=== PATIENT | female | born 1980 | race Two or more races ===

== ENCOUNTER 2018-06-03 13:24 | Inpatient (IN) | payer MEDICAID ==
[~2018-06-03] VITALS: Ht 165.1 cm; Wt 131.5 kg
[2018-06-03] MEDS ORDERED: IPRATROPIUM BROMIDE (0.02%) 0.5MG/2.5ML NEB HHN STA (13:48)
[2018-06-03] MEDS ORDERED: METHYLPREDNISOLONE SOD SUCC 125 MG/2 ML VIAL IV STA (13:48)
[2018-06-03] MEDS ORDERED: ALBUTEROL (0.083%) 2.5MG/3ML NEB HHN STA ×2 (13:48→15:44)
[2018-06-03 14:31] LABS: BASOPHILS % 0.5 % (0.0-2.0); EOSINOPHILS % 0.2 % (0.0-5.0); HEMATOCRIT. 33.3 % (36.0-48.0); HEMOGLOBIN. 10.3 g/dL (12.0-16.0); LYMPHOCYTES % 13.8 % (20.0-50.0); MEAN CORPUSCULAR HEMOGLOBIN 26.1 pg (28.0-32.0); MEAN CORPUSCULAR VOLUME 84.5 fL (81.0-99.0); MEAN PLATELET VOLUME 10.7 fl (7.4-10.4); MONOCYTES % 10.7 % (2.0-8.0); NEUTROPHILS % 74.8 % (40.0-76.0); PLATELET 165 x1000/uL (130-400); RED BLOOD CELL COUNT 3.94 mill/uL (4.2-5.4); RED CELL DISTRIBUTION WIDTH 19.8 % (11.6-14.6)
[2018-06-03 14:36] LABS: CHLORIDE 116 mEq/L (98-107)
[2018-06-03 14:42] LABS: ETHANOL BLOOD < 10 mg/dL
[2018-06-03 16:46] LABS: BG BASE EXCESS -4.3 mmol/L (-2.0-2.0); BG BILEVEL POS AIRWAY PRESSURE ST=14/6; BG CARBOXYHEMOGLOBIN 0.5 % (0.5-1.5); BG DEOXYHEMOGLOBIN 0.7 % (0.0-5.0); BG FRACTION INSPIRED OXYGEN 50; BG HCO3 ACT 21.4 mmol/L (22.0-26.0); BG METHEMOGLOBIN 0.3 % (0.0-1.5); BG OXYGEN SATURATION 99.3 % (92.0-98.5); BG OXYHEMOGLOBIN 98.5 % (94.0-97.0); BG PCO2 41.9 mmHg (35.0-45.0); BG PH 7.326 (7.350-7.450); BG PO2 196.8 mmHg (75.0-100.0); BG PRESSURE SUPPORT 8; BG SAMPLE SITE RIGHT RADIAL; BG TOTAL HEMOGLOBIN 10.8 g/dL (12.0-18.0); BG VENT MODE MASK - BIPAP; BG VENT RATE 14 set
[2018-06-03 17:05] LABS: HCG SCREEN NEGATIVE
[2018-06-03] MEDS ORDERED: FUROSEMIDE 40MG/4ML VIAL IVP ONE (17:15)
[2018-06-03 20:30] VITALS: BP 104/58
[2018-06-03 20:31] VITALS: BP 104/58
[2018-06-03] MEDS ORDERED: IPRATROPIUM/ALBUTEROL 0.5-3(2.5)MG/3ML NEB HHN PRN (21:00)
[2018-06-03] MEDS: METHYLPREDNISOLONE SOD SUCC 40 MG/ML VIAL IV SCH (22:16)
[2018-06-03 22:22] VITALS: BP 108/73
[2018-06-03] MEDS ORDERED: CHOL20004 PO (22:25)
[2018-06-03] MEDS ORDERED: DIVA500T3 PO (22:29)
[2018-06-03] MEDS ORDERED: TEMAZEPAM 15MG CAPSULE PO PRN (22:30)
[2018-06-03] MEDS ORDERED: LORA10TA7 PO (22:30)
[2018-06-03] MEDS ORDERED: LITHTAB PO ×2 (22:34)
[2018-06-03] MEDS ORDERED: TOP100 PO (22:35)
[2018-06-03] MEDS ORDERED: BENZ1TAB7 PO (22:51)
[2018-06-03] MEDS ORDERED: OLAN20TA16 PO (22:52)
[2018-06-03] MEDS ORDERED: LORA2TAB2 PO (22:54)
[2018-06-03] MEDS ORDERED: LORA1TAB PO (22:54)
[2018-06-03] MEDS ORDERED: FLUO-124 PO (22:55)
[2018-06-03] MEDS ORDERED: OMEP40CA34 PO (22:56)
[2018-06-03] MEDS ORDERED: DOCU250C69 PO (22:57)
[2018-06-03] MEDS ORDERED: FLUT16SP15 BOTHNSTRLS (22:59)
[2018-06-03] MEDS ORDERED: POLY119P8 PO (23:01)
[2018-06-03] MEDS ORDERED: TEMA15CA5 PO (23:03)
[2018-06-03] MEDS ORDERED: ALBU18HF2 IH (23:05)
[2018-06-03] MEDS: LEVOFLOXACIN 500MG PREMIX 100 ML IV SCH (23:39)
[2018-06-04] VITALS (14 sets, daily range): BP systolic 91–152; BP diastolic 32–76
[2018-06-04] MEDS: IPRATROPIUM/ALBUTEROL 0.5-3(2.5)MG/3ML NEB HHN SCH ×6 (00:25→21:09)
[2018-06-04] MEDS ORDERED: DEXT 5%/0.45% NACL KCL 20MEQ/L 1,000 ML IV SCH (03:00)
[2018-06-04] MEDS: METHYLPREDNISOLONE SOD SUCC 40 MG/ML VIAL IV SCH ×4 (03:15→22:27)
[2018-06-04 03:27] LABS: CLARITY URINE CLOUDY (CLEAR); COLOR URINE YELLOW (YELLOW); KETONES URINE TRACE (NEGATIVE); LEUKOCYTE ESTERASE URINE 3+ (NEGATIVE); NITRITE URINE NEGATIVE (NEGATIVE); OCCULT BLOOD URINE TRACE (NEGATIVE); PH URINE 7.5 (4.5-8.0); PROTEIN URINE NEGATIVE (NEGATIVE); SPECIFIC GRAVITY URINE 1.011 (1.005-1.030); UROBILINOGEN URINE 0.2 E.U./dL (0.2-1.0)
[2018-06-04 03:36] LABS: *AMPHETAMINES SCREEN URINE NEGATIVE (NEGATIVE); *BARBITURATES SCREEN URINE NEGATIVE (NEGATIVE)
[2018-06-04 03:37] LABS: *BENZODIAZEPINES SCREEN URINE NEGATIVE (NEGATIVE); *COCAINE SCREEN URINE NEGATIVE (NEGATIVE); METHADONE URINE SCREEN NEGATIVE (NEGATIVE); OPIATES URINE SCREEN NEGATIVE (NEGATIVE); PHENCYCLIDINE URINE SCREEN NEGATIVE (NEGATIVE)
[2018-06-04 03:41] LABS: CANNABINOID URINE SCREEN NEGATIVE (NEGATIVE)
[2018-06-04] MEDS ORDERED: OMEPRAZOLE 20MG CAPSULE EXTENDED RELEASE PO SCH (06:50)
[2018-06-04] MEDS: ENOXAPARIN 30MG/0.3ML SYR SUBCUT SCH ×2 (08:34→22:30)
[2018-06-04] MEDS ORDERED: LITHIUM CARBONATE 300 MG PO SCH ×2 (09:00→21:00)
[2018-06-04] MEDS: DOCUSATE SODIUM 250MG CAPSULE PO SCH (09:00)
[2018-06-04] MEDS ORDERED: MEDICATION NOT ON FORMULARY EA (Omeprazole 40 MG) PO SCH (09:00)
[2018-06-04] MEDS ORDERED: MEDICATION NOT ON FORMULARY EA (Olanzapine 20 MG) PO SCH (09:00)
[2018-06-04] MEDS ORDERED: FLUOXETINE HCL 20 MG PO SCH (09:00)
[2018-06-04] MEDS ORDERED: BENZTROPINE MESYLATE 2 MG PO SCH (09:00)
[2018-06-04] MEDS ORDERED: MEDICATION NOT ON FORMULARY EA (Docusate Sodium 250 MG) PO SCH (09:00)
[2018-06-04] MEDS: TOPIRAMATE 100MG TABLET PO SCH ×2 (10:58→17:45)
[2018-06-04] MEDS: BENZTROPINE MESYLATE 2MG TABLET PO SCH ×2 (10:58→17:45)
[2018-06-04] MEDS: OLANZAPINE 10MG TABLET PO SCH ×2 (10:58→17:45)
[2018-06-04] MEDS: FLUOXETINE HCL 20MG CAPSULE PO SCH (10:58)
[2018-06-04] MEDS: LORATADINE 10MG TABLET PO SCH (10:59)
[2018-06-04] MEDS: LITHIUM CARBONATE 150 MG CAPSULE PO SCH ×2 (10:59→22:29)
[2018-06-04] MEDS: FLUTICASONE PROPIONATE 50MCG/SPRAY BOTTLE BOTHNSTRLS SCH (11:00)
[2018-06-04] MEDS ORDERED: FUROSEMIDE 40MG/4ML VIAL IVP NR (11:00)
[2018-06-04] MEDS ORDERED: POTASSIUM CHLORIDE 20MEQ TABLET SR PO NR (12:37)
[2018-06-04] MEDS: NYSTATIN POWDER 15GM TOP SCH ×2 (13:50→17:46)
[2018-06-04] MEDS: NEOMY SULF/BACITRAC ZN/POLY OINT 28GM TOP SCH ×2 (13:50→22:29)
[2018-06-04] MEDS: MONTELUKAST SODIUM 10MG TABLET PO SCH (17:45)
[2018-06-04] MEDS ORDERED: MEDICATION NOT ON FORMULARY EA (Divalproex Sodium (Depakote) 500 MG) PO SCH (21:00)
[2018-06-04] MEDS: FAMOTIDINE 20MG/2ML VIAL IV SCH (22:25)
[2018-06-04] MEDS: DIVALPROEX SODIUM 250MG DR TABLET PO SCH (22:28)
[2018-06-04] MEDS: GUAIFENESIN 600MG ER TABLET PO SCH (22:28)
[2018-06-04] MEDS: LEVOFLOXACIN 500MG PREMIX 100 ML IV SCH (22:54)
[2018-06-05] VITALS (12 sets, daily range): BP systolic 103–158; BP diastolic 52–102
[2018-06-05] MEDS: IPRATROPIUM/ALBUTEROL 0.5-3(2.5)MG/3ML NEB HHN SCH ×6 (01:16→20:58)
[2018-06-05] MEDS: METHYLPREDNISOLONE SOD SUCC 40 MG/ML VIAL IV SCH ×4 (03:39→21:46)
[2018-06-05] MEDS: LITHIUM CARBONATE 150 MG CAPSULE PO SCH ×2 (08:11→21:47)
[2018-06-05] MEDS: GUAIFENESIN 600MG ER TABLET PO SCH ×2 (08:13→21:46)
[2018-06-05] MEDS: BENZTROPINE MESYLATE 2MG TABLET PO SCH ×2 (08:14→17:40)
[2018-06-05] MEDS: TOPIRAMATE 100MG TABLET PO SCH ×2 (08:16→17:40)
[2018-06-05] MEDS: DOCUSATE SODIUM 250MG CAPSULE PO SCH (08:18)
[2018-06-05] MEDS: FLUOXETINE HCL 20MG CAPSULE PO SCH (08:19)
[2018-06-05] MEDS: OLANZAPINE 10MG TABLET PO SCH ×2 (08:26→17:39)
[2018-06-05 08:28] LABS: BASOPHILS % 0.3 % (0.0-2.0); HEMATOCRIT. 31.9 % (36.0-48.0); HEMOGLOBIN. 9.8 g/dL (12.0-16.0); LYMPHOCYTES % 18.2 % (20.0-50.0); MEAN CORPUSCULAR VOLUME 84.8 fL (81.0-99.0); MEAN PLATELET VOLUME 10.9 fl (7.4-10.4); MONOCYTES % 7.5 % (2.0-8.0); PLATELET 140 x1000/uL (130-400); RED BLOOD CELL COUNT 3.76 mill/uL (4.2-5.4); RED CELL DISTRIBUTION WIDTH 20.9 % (11.6-14.6)
[2018-06-05] MEDS: ENOXAPARIN 30MG/0.3ML SYR SUBCUT SCH (08:32)
[2018-06-05] MEDS: NEOMY SULF/BACITRAC ZN/POLY OINT 28GM TOP SCH ×2 (08:32→22:33)
[2018-06-05] MEDS: NYSTATIN POWDER 15GM TOP SCH ×3 (08:33→17:00)
[2018-06-05] MEDS: FLUTICASONE PROPIONATE 50MCG/SPRAY BOTTLE BOTHNSTRLS SCH (08:45)
[2018-06-05] MEDS ORDERED: LORATADINE 10MG TABLET PO SCH (09:00)
[2018-06-05 09:32] LABS: CHLORIDE 114 mEq/L (98-107)
[2018-06-05] MEDS: FAMOTIDINE 20MG/2ML VIAL IV SCH ×2 (09:34→21:46)
[2018-06-05] MEDS: LORATADINE 10MG TABLET PO SCH (09:35)
[2018-06-05] MEDS ORDERED: ONDANSETRON HCL 4MG/2ML INJ IV PRN (13:30)
[2018-06-05] MEDS: LORAZEPAM 0.5MG TABLET PO PRN (14:03)
[2018-06-05] MEDS: ACETAMINOPHEN 325MG TABLET PO PRN (17:38)
[2018-06-05] MEDS: MONTELUKAST SODIUM 10MG TABLET PO SCH (17:40)
[2018-06-05] MEDS: DIVALPROEX SODIUM 250MG DR TABLET PO SCH (21:46)
[2018-06-05] MEDS: AMLODIPINE 5MG TABLET PO SCH (21:47)
[2018-06-05] MEDS: ENOXAPARIN 40MG/0.4ML SYR SUBCUT SCH (21:48)
[2018-06-05] MEDS: LEVOFLOXACIN 500MG PREMIX 100 ML IV SCH (21:49)
[2018-06-05] MEDS: GUAIFENESIN-DM 200MG-20MG/10ML UDC PO PRN (22:52)
[2018-06-06] VITALS (8 sets, daily range): BP systolic 94–155; BP diastolic 54–100
[2018-06-06] MEDS: IPRATROPIUM/ALBUTEROL 0.5-3(2.5)MG/3ML NEB HHN SCH ×6 (00:10→20:27)
[2018-06-06] MEDS: METHYLPREDNISOLONE SOD SUCC 40 MG/ML VIAL IV SCH ×4 (03:00→20:29)
[2018-06-06] MEDS: GUAIFENESIN-DM 200MG-20MG/10ML UDC PO PRN (05:10)
[2018-06-06 06:07] LABS: CHLORIDE 112 mEq/L (98-107)
[2018-06-06 06:26] LABS: HEMOGLOBIN. 9.6 g/dL (12.0-16.0); MEAN CORPUSCULAR HEMOGLOBIN 25.9 pg (28.0-32.0); MEAN CORPUSCULAR VOLUME 83.9 fL (81.0-99.0); MEAN PLATELET VOLUME 10.6 fl (7.4-10.4); PLATELET 147 x1000/uL (130-400); RED BLOOD CELL COUNT 3.69 mill/uL (4.2-5.4); RED CELL DISTRIBUTION WIDTH 20.3 % (11.6-14.6)
[2018-06-06] MEDS: NYSTATIN POWDER 15GM TOP SCH ×3 (08:19→17:56)
[2018-06-06] MEDS: GUAIFENESIN 600MG ER TABLET PO SCH ×2 (08:20→20:30)
[2018-06-06] MEDS: FLUTICASONE PROPIONATE 50MCG/SPRAY BOTTLE BOTHNSTRLS SCH (08:20)
[2018-06-06] MEDS: OLANZAPINE 10MG TABLET PO SCH ×2 (08:20→17:56)
[2018-06-06] MEDS: LORATADINE 10MG TABLET PO SCH (08:20)
[2018-06-06] MEDS: NEOMY SULF/BACITRAC ZN/POLY OINT 28GM TOP SCH ×2 (08:20→20:47)
[2018-06-06] MEDS: DOCUSATE SODIUM 250MG CAPSULE PO SCH (08:20)
[2018-06-06] MEDS: FAMOTIDINE 20MG/2ML VIAL IV SCH ×2 (08:20→20:29)
[2018-06-06] MEDS: FLUOXETINE HCL 20MG CAPSULE PO SCH (08:20)
[2018-06-06] MEDS: AMLODIPINE 5MG TABLET PO SCH ×2 (08:22→20:42)
[2018-06-06 10:34] LABS: NUCLEATED RED BLOOD CELLS 1 /100 WBC; PLATELET ESTIMATE NORMAL
[2018-06-06] MEDS: TOPIRAMATE 100MG TABLET PO SCH ×2 (13:41→17:56)
[2018-06-06] MEDS: LITHIUM CARBONATE 150 MG CAPSULE PO SCH ×2 (13:41→20:43)
[2018-06-06] MEDS: BENZTROPINE MESYLATE 2MG TABLET PO SCH ×2 (13:41→17:56)
[2018-06-06] MEDS: ENOXAPARIN 40MG/0.4ML SYR SUBCUT SCH ×2 (13:43→20:28)
[2018-06-06] MEDS: MONTELUKAST SODIUM 10MG TABLET PO SCH (17:56)
[2018-06-06] MEDS: LORAZEPAM 0.5MG TABLET PO PRN (20:29)
[2018-06-06] MEDS: DIVALPROEX SODIUM 250MG DR TABLET PO SCH (20:42)
[2018-06-06] MEDS: ACETAMINOPHEN 325MG TABLET PO PRN (20:54)
[2018-06-06] MEDS ORDERED: LEVOFLOXACIN 500MG TABLET PO SCH (21:00)
[2018-06-07] MEDS: IPRATROPIUM/ALBUTEROL 0.5-3(2.5)MG/3ML NEB HHN SCH ×3 (00:06→09:15)
[2018-06-07] MEDS: METHYLPREDNISOLONE SOD SUCC 40 MG/ML VIAL IV SCH ×2 (02:06→07:40)
[2018-06-07] MEDS: LORAZEPAM 0.5MG TABLET PO PRN (02:40)
[2018-06-07] MEDS: GUAIFENESIN-DM 200MG-20MG/10ML UDC PO PRN (02:40)
[2018-06-07 04:00] VITALS: BP 127/71
[2018-06-07] MEDS: DOCUSATE SODIUM 250MG CAPSULE PO SCH (07:39)
[2018-06-07] MEDS: TOPIRAMATE 100MG TABLET PO SCH (07:39)
[2018-06-07] MEDS: LITHIUM CARBONATE 150 MG CAPSULE PO SCH (07:39)
[2018-06-07] MEDS: BENZTROPINE MESYLATE 2MG TABLET PO SCH (07:40)
[2018-06-07] MEDS: GUAIFENESIN 600MG ER TABLET PO SCH (07:40)
[2018-06-07] MEDS: ENOXAPARIN 40MG/0.4ML SYR SUBCUT SCH (07:40)
[2018-06-07] MEDS: FAMOTIDINE 20MG/2ML VIAL IV SCH (07:40)
[2018-06-07] MEDS: AMLODIPINE 5MG TABLET PO SCH (07:40)
[2018-06-07] MEDS: LORATADINE 10MG TABLET PO SCH (07:40)
[2018-06-07] MEDS: FLUOXETINE HCL 20MG CAPSULE PO SCH (07:40)
[2018-06-07] MEDS: NYSTATIN POWDER 15GM TOP SCH (07:41)
[2018-06-07] MEDS: FLUTICASONE PROPIONATE 50MCG/SPRAY BOTTLE BOTHNSTRLS SCH (07:41)
[2018-06-07] MEDS: NEOMY SULF/BACITRAC ZN/POLY OINT 28GM TOP SCH (07:41)
[2018-06-07] MEDS: OLANZAPINE 10MG TABLET PO SCH (07:48)
[2018-06-07 08:09] VITALS: BP 132/70
[2018-06-07 12:00] VITALS: BP 137/85
== END 2018-06-07 14:20 | disposition home or self-care (01) | DRG 720 ==
LOC: ER 13:39 → 3WST 17:04 → EDBEDREQ 17:07 → EDBEDREQTM 17:07 → CANRESERV 17:37 → ENRESERV 17:37 → 7WST 06-05 23:48
PROVIDERS: ADMIT Internal Medicine; ATTEND Internal Medicine
PROC: 5A09357 Assistance with Respiratory Ventilation, Less than 24 Consecutive Hours, Continuous Positive Airway Pressure (ICD-10-PCS; principal; 2018-06-03)
DX: A41.9 Sepsis, unspecified organism (principal); J96.00 Acute respiratory failure, unspecified whether with hypoxia or hypercapnia; G93.40 Encephalopathy, unspecified; J45.901 Unspecified asthma with (acute) exacerbation; E44.1 Mild protein-calorie malnutrition; E66.01 Morbid (severe) obesity due to excess calories; E87.0 Hyperosmolality and hypernatremia; N39.0 Urinary tract infection, site not specified; D64.9 Anemia, unspecified; S51.812A Laceration without foreign body of left forearm, initial encounter; X58.XXXA Exposure to other specified factors, initial encounter; B96.4 Proteus (mirabilis) (morganii) as the cause of diseases classified elsewhere; F20.9 Schizophrenia, unspecified; I10 Essential (primary) hypertension; E87.70 Fluid overload, unspecified; E87.8 Other disorders of electrolyte and fluid balance, not elsewhere classified; F31.9 Bipolar disorder, unspecified; G40.909 Epilepsy, unspecified, not intractable, without status epilepticus; S01.21XA Laceration without foreign body of nose, initial encounter; Z72.0 Tobacco use; Z68.42 Body mass index [BMI] 45.0-49.9, adult; Y93.89 Activity, other specified; Y92.89 Other specified places as the place of occurrence of the external cause; Y99.8 Other external cause status
CPT/HCPCS: 36415; 36600; 71045; 80048; 80165; 80178; 80305; 82375; 82805; 82962; 83036; 83735; 83880; 84134; 84484; 84703; 87077; 87186; 92610; 93005; 93306; 93970; 94640; 96374; 97116; 97162; 97530; 99285; G0482; J1650; J1940; J1956; J2405; J2920; J2930; J3490; J7040; J7050; J7611; J7620; A4315

== ENCOUNTER 2018-07-16 17:04 | Inpatient (IN) | payer MEDICAID ==
[~2018-07-16] VITALS: Ht 167.6 cm; Wt 119.3 kg
[~2018-07-16 17:04] MED LIST: ALBU18HF2 IH; BENZ1TAB7 PO; CHOL20004 PO; DIVA500T3 PO; DOCU250C69 PO; FLUO-124 PO; FLUT16SP15 BOTHNSTRLS; LITHTAB PO; LORA10TA7 PO; LORA1TAB PO; LORA2TAB2 PO; OLAN20TA16 PO; OMEP40CA34 PO; POLY119P8 PO; TEMA15CA5 PO; TOP100 PO
[2018-07-16] MEDS ORDERED: SODIUM CHLORIDE 0.9% 1,000 ML IV ONE (18:22)
[2018-07-16 19:07] LABS: BASOPHILS % 0.5 % (0.0-2.0); EOSINOPHILS % 1.6 % (0.0-5.0); HEMATOCRIT. 36.5 % (36.0-48.0); HEMOGLOBIN. 11.1 g/dL (12.0-16.0); LYMPHOCYTES % 20.2 % (20.0-50.0); MEAN CORPUSCULAR HEMOGLOBIN 25.5 pg (28.0-32.0); MEAN CORPUSCULAR VOLUME 83.6 fL (81.0-99.0); MEAN PLATELET VOLUME 10.5 fl (7.4-10.4); MONOCYTES % 10.2 % (2.0-8.0); NEUTROPHILS % 67.5 % (40.0-76.0); PLATELET 167 x1000/uL (130-400); RED BLOOD CELL COUNT 4.37 mill/uL (4.2-5.4); RED CELL DISTRIBUTION WIDTH 20.4 % (11.6-14.6)
[2018-07-16 19:10] LABS: CHLORIDE 116 mEq/L (98-107)
[2018-07-16 19:12] LABS: HCG SCREEN NEGATIVE; INR 1.3; PARTIAL THROMBOPLASTIN TIME 25.4 sec (23.4-31.0); PROTHROMBIN TIME 13.5 sec (9.1-11.1)
[2018-07-16 19:18] LABS: ETHANOL BLOOD < 10 mg/dL
[2018-07-16 22:19] LABS: *AMPHETAMINES SCREEN URINE NEGATIVE (NEGATIVE); *BARBITURATES SCREEN URINE NEGATIVE (NEGATIVE); *BENZODIAZEPINES SCREEN URINE NEGATIVE (NEGATIVE); *COCAINE SCREEN URINE NEGATIVE (NEGATIVE)
[2018-07-16 22:20] LABS: CANNABINOID URINE SCREEN NEGATIVE (NEGATIVE); METHADONE URINE SCREEN NEGATIVE (NEGATIVE); OPIATES URINE SCREEN NEGATIVE (NEGATIVE); PHENCYCLIDINE URINE SCREEN NEGATIVE (NEGATIVE)
[2018-07-17] MEDS ORDERED: IPRATROPIUM/ALBUTEROL 0.5-3(2.5)MG/3ML NEB INH PRN
[2018-07-17] MEDS ORDERED: NA PHOS,M-B/NA PHOS,DI-BA ENEMA 118ML PR PRN
[2018-07-17] MEDS ORDERED: MAGNESIUM/ALUMINUM HYDROXIDE/SIMETHICONE 30ML UDC PO PRN
[2018-07-17] MEDS ORDERED: LORAZEPAM 2MG/ML CPJ IV PRN
[2018-07-17] MEDS ORDERED: HYDRALAZINE 20MG/ML VIAL IV PRN
[2018-07-17] MEDS ORDERED: DOCUSATE SODIUM 100MG CAPSULE PO PRN
[2018-07-17] MEDS ORDERED: CLONIDINE 0.1MG TABLET PO PRN
[2018-07-17] MEDS ORDERED: GUAIFENESIN 200MG/10ML SUGAR FREE UDC PO PRN
[2018-07-17] MEDS: DEXTROSE 5% WATER 1,000 ML IV SCH ×2 (00:06→14:39)
[2018-07-17] MEDS ORDERED: HYDROMORPHONE HCL/PF 2MG/ML CPJ IV PRN ×2 (03:15)
[2018-07-17 03:40] VITALS: BP 144/85
[2018-07-17 04:00] VITALS: BP 102/46
[2018-07-17] MEDS ORDERED: CLON0.1T PO (05:07)
[2018-07-17] MEDS ORDERED: DOXE100C4 MT (05:07)
[2018-07-17] MEDS ORDERED: HAL5 MT (05:10)
[2018-07-17] MEDS ORDERED: TH200 MT (05:13)
[2018-07-17] MEDS ORDERED: CHLO100T25 MT (05:13)
[2018-07-17 08:00] VITALS: BP 108/57
[2018-07-17] MEDS: ENOXAPARIN 30MG/0.3ML SYR SUBCUT SCH ×2 (09:24→21:14)
[2018-07-17 12:00] VITALS: BP 119/58
[2018-07-17] MEDS: SODIUM CHLORIDE 0.9% INJ 3ML FLUSH IVF SCH ×2 (14:40→21:15)
[2018-07-17 16:00] VITALS: BP 116/70
[2018-07-17 18:14] LABS: BASOPHILS % 0.9 % (0.0-2.0); EOSINOPHILS % 2.3 % (0.0-5.0); HEMATOCRIT. 33.4 % (36.0-48.0); HEMOGLOBIN. 10.3 g/dL (12.0-16.0); LYMPHOCYTES % 30.1 % (20.0-50.0); MEAN CORPUSCULAR HEMOGLOBIN 25.6 pg (28.0-32.0); MEAN CORPUSCULAR VOLUME 83.5 fL (81.0-99.0); MEAN PLATELET VOLUME 10.4 fl (7.4-10.4); MONOCYTES % 9.4 % (2.0-8.0); NEUTROPHILS % 57.3 % (40.0-76.0); PLATELET 157 x1000/uL (130-400); RED CELL DISTRIBUTION WIDTH 20.5 % (11.6-14.6)
[2018-07-17 18:24] LABS: CHLORIDE 116 mEq/L (98-107)
[2018-07-17 18:33] LABS: CREATINE KINASE 379 IU/L (26-192); T4 FREE 0.65 ng/dL (0.76-1.46)
[2018-07-17 18:35] LABS: CREATINE KINASE MB FRACTION 2.6 ng/mL (0.5-3.6)
[2018-07-17 20:00] VITALS: BP 129/76
[2018-07-17] MEDS: HYDROCODONE/APAP 7.5/325MG 1 TAB TABLET PO PRN (21:16)
[2018-07-18 04:00] VITALS: BP 103/56
[2018-07-18] MEDS: DIPHENHYDRAMINE 50MG/ML VIAL IV PRN (04:34)
[2018-07-18] MEDS: DEXTROSE 5% WATER 1,000 ML IV SCH (04:35)
[2018-07-18] MEDS: SODIUM CHLORIDE 0.9% INJ 3ML FLUSH IVF SCH ×2 (06:26→14:34)
[2018-07-18] MEDS: LEVOTHYROXINE SODIUM 50MCG TABLET PO SCH (06:26)
[2018-07-18 08:00] VITALS: BP 122/70
[2018-07-18] MEDS: ENOXAPARIN 30MG/0.3ML SYR SUBCUT SCH ×2 (08:34→20:20)
[2018-07-18] MEDS ORDERED: ENOXAPARIN 40MG/0.4ML SYR SUBCUT SCH ×2 (09:00)
[2018-07-18] MEDS: ONDANSETRON HCL 4MG/2ML INJ IV PRN (10:35)
[2018-07-18 12:00] VITALS: BP 126/70
[2018-07-18 12:04] LABS: CHLORIDE 108 mEq/L (98-107)
[2018-07-18 16:00] VITALS: BP 121/72
[2018-07-18 20:00] VITALS: BP 105/58
[2018-07-18] MEDS: HYDROCODONE/APAP 7.5/325MG 1 TAB TABLET PO PRN (20:21)
[2018-07-19] VITALS: BP 113/69
[2018-07-19 04:00] VITALS: BP 116/57
[2018-07-19 08:00] VITALS: BP 98/54
[2018-07-19] MEDS: LEVOTHYROXINE SODIUM 50MCG TABLET PO SCH (08:12)
[2018-07-19] MEDS: ENOXAPARIN 30MG/0.3ML SYR SUBCUT SCH ×2 (08:13→21:59)
[2018-07-19 12:00] VITALS: BP 119/78
[2018-07-19] MEDS ORDERED: POTASSIUM CHLORIDE 20MEQ TABLET SR PO NR (13:30)
[2018-07-19] MEDS: ONDANSETRON HCL 4MG/2ML INJ IV PRN (13:58)
[2018-07-19] MEDS: LORAZEPAM 2MG/ML CPJ IV PRN ×2 (13:59→22:28)
[2018-07-19 16:00] VITALS: BP 108/69
[2018-07-19] MEDS: DIPHENHYDRAMINE 50MG/ML VIAL IV PRN (17:26)
[2018-07-19] MEDS: SODIUM CHLORIDE 0.9% INJ 3ML FLUSH IVF SCH ×2 (17:26→21:59)
[2018-07-19 20:00] VITALS: BP 120/69
[2018-07-20] VITALS: BP 113/57
[2018-07-20 04:00] VITALS: BP 116/61
[2018-07-20] MEDS: SODIUM CHLORIDE 0.9% INJ 3ML FLUSH IVF SCH ×3 (06:28→23:45)
[2018-07-20] MEDS: LEVOTHYROXINE SODIUM 50MCG TABLET PO SCH (06:28)
[2018-07-20 08:00] VITALS: BP 114/55
[2018-07-20] MEDS: ENOXAPARIN 30MG/0.3ML SYR SUBCUT SCH ×2 (08:50→23:49)
[2018-07-20] MEDS: LORAZEPAM 2MG/ML CPJ IV PRN (08:50)
[2018-07-20 12:00] VITALS: BP 138/67
[2018-07-20 16:00] VITALS: BP 114/59
[2018-07-20 20:00] VITALS: BP 115/68
[2018-07-20] MEDS: DEXTROSE 5% WATER 1,000 ML IV SCH (23:46)
[2018-07-21] VITALS: BP 113/66
[2018-07-21 04:00] VITALS: BP 123/70
[2018-07-21] MEDS: SODIUM CHLORIDE 0.9% INJ 3ML FLUSH IVF SCH ×3 (05:46→21:41)
[2018-07-21] MEDS: LEVOTHYROXINE SODIUM 50MCG TABLET PO SCH (05:46)
[2018-07-21 08:00] VITALS: BP 106/77
[2018-07-21] MEDS: ENOXAPARIN 30MG/0.3ML SYR SUBCUT SCH ×2 (08:25→21:41)
[2018-07-21] MEDS: LORAZEPAM 2MG/ML CPJ IV PRN ×2 (08:25→18:47)
[2018-07-21 12:00] VITALS: BP 105/71
[2018-07-21 16:00] VITALS: BP 116/77
[2018-07-21 20:00] VITALS: BP 117/82
[2018-07-22] VITALS: BP 107/52
[2018-07-22] MEDS: ACETAMINOPHEN 325MG TABLET PO PRN (03:35)
[2018-07-22 04:00] VITALS: BP 126/76
[2018-07-22] MEDS: LEVOTHYROXINE SODIUM 50MCG TABLET PO SCH (05:49)
[2018-07-22] MEDS: SODIUM CHLORIDE 0.9% INJ 3ML FLUSH IVF SCH (05:50)
[2018-07-22 08:00] VITALS: BP 119/77
[2018-07-22] MEDS: ENOXAPARIN 30MG/0.3ML SYR SUBCUT SCH ×2 (09:55→20:31)
[2018-07-22 12:00] VITALS: BP 121/73
[2018-07-22] MEDS ORDERED: LORAZEPAM 1MG TABLET PO PRN (12:00)
[2018-07-22] MEDS ORDERED: ONDANSETRON 4MG ODT PO PRN (12:00)
[2018-07-22] MEDS ORDERED: DIPHENHYDRAMINE 12.5MG/5ML UDC PO PRN (12:00)
[2018-07-22 16:00] VITALS: BP 118/70
[2018-07-22 20:00] VITALS: BP 112/60
[2018-07-23] VITALS: BP 111/60
[2018-07-23 04:00] VITALS: BP 103/61
[2018-07-23] MEDS: LEVOTHYROXINE SODIUM 50MCG TABLET PO SCH (06:37)
[2018-07-23 08:30] VITALS: BP 118/75
[2018-07-23] MEDS: ENOXAPARIN 30MG/0.3ML SYR SUBCUT SCH (10:12)
[2018-07-23 12:00] VITALS: BP 103/61
[2018-07-23] MEDS: ACETAMINOPHEN 325MG TABLET PO PRN (14:39)
[2018-07-23 16:00] VITALS: BP 116/55
[2018-07-23 18:14] VITALS: BP 116/58
== END 2018-07-23 18:30 | disposition home or self-care (01) | DRG 52 ==
LOC: ER 17:04 → 5WST 23:13 → ENRESERV 07-17 02:33 → ER 07-17 03:09 → 5WST 07-17 03:40
PROVIDERS: ADMIT Internal Medicine; ATTEND Internal Medicine
DX: G93.40 Encephalopathy, unspecified (principal); E43 Unspecified severe protein-calorie malnutrition; E87.0 Hyperosmolality and hypernatremia; E66.01 Morbid (severe) obesity due to excess calories; I10 Essential (primary) hypertension; D64.9 Anemia, unspecified; R94.6 Abnormal results of thyroid function studies; F31.9 Bipolar disorder, unspecified; K21.9 Gastro-esophageal reflux disease without esophagitis; Z79.899 Other long term (current) drug therapy; Z86.73 Personal history of transient ischemic attack (TIA), and cerebral infarction without residual deficits; Z68.41 Body mass index [BMI] 40.0-44.9, adult
CPT/HCPCS: 36415; 71045; 80048; 80165; 80178; 80305; 82140; 82550; 82553; 84439; 84443; 84484; 84703; 92610; 93005; 96361; 96374; 96375; 97162; 97166; 99285; C1893; G0482; J1200; J1650; J2060; J2405; J7030; J7070; Q0162

== ENCOUNTER 2019-07-05 13:57 | Emergency (ER) | payer MEDICAID ==
[~2019-07-05] VITALS: Ht 167.6 cm; Wt 100.0 kg
[~2019-07-05 13:57] MED LIST changes: +CHLO100T25 MT; +CLON0.1T PO; +DOXE100C4 MT; -FLUO-124 PO; +FLUO20CA37 PO; +HAL5 MT; -OLAN20TA16 PO; +OLAN20TA34 PO; +OMEP40CA12 PO; -OMEP40CA34 PO; +TH200 MT
[2019-07-05 19:10] LABS: CLARITY URINE CLOUDY (CLEAR); COLOR URINE YELLOW (YELLOW); KETONES URINE NEGATIVE (NEGATIVE); LEUKOCYTE ESTERASE URINE 2+ (NEGATIVE); NITRITE URINE NEGATIVE (NEGATIVE); OCCULT BLOOD URINE NEGATIVE (NEGATIVE); PH URINE 5.5 (4.5-8.0); PROTEIN URINE NEGATIVE (NEGATIVE); SPECIFIC GRAVITY URINE 1.008 (1.005-1.030); UROBILINOGEN URINE 0.2 E.U./dL (0.2-1.0)
[2019-07-05] MEDS ORDERED: METRONIDAZOLE 50MG/ML 1ML ORAL SYR(NEO) PO ONE (20:45)
[2019-07-05] MEDS ORDERED: LEVOFLOXACIN 500MG TABLET PO ONE (20:45)
[2019-07-05] MEDS ORDERED: METRONIDAZOLE 500MG TABLET PO NR (20:52)
[2019-07-05 21:02] VITALS: BP 124/74
[2019-07-05] MEDS ORDERED: ONDANSETRON 4MG ODT PO ONE (21:15)
== END 2019-07-05 21:00 | disposition home or self-care (01) ==
LOC: ER 14:15
DX: S91.202A Unspecified open wound of left great toe with damage to nail, initial encounter (principal); R10.9 Unspecified abdominal pain; R19.7 Diarrhea, unspecified; F31.9 Bipolar disorder, unspecified; K21.9 Gastro-esophageal reflux disease without esophagitis; I10 Essential (primary) hypertension; R56.9 Unspecified convulsions; F20.9 Schizophrenia, unspecified; W22.09XA Striking against other stationary object, initial encounter; Y93.9 Activity, unspecified; Y92.9 Unspecified place or not applicable
CPT/HCPCS: 74176; 81003; 81025; 99284; Q0162

== ENCOUNTER 2019-07-21 17:09 | Emergency (ER) | payer MEDICAID ==
[~2019-07-21] VITALS: Ht 167.6 cm; Wt 82.0 kg
[2019-07-21 19:24] LABS: BASOPHILS % 0.5 % (0.0-2.0); HEMATOCRIT. 33.8 % (36.0-48.0); HEMOGLOBIN. 10.9 g/dL (12.0-16.0); LYMPHOCYTES % 25.7 % (20.0-50.0); MEAN CORPUSCULAR HEMOGLOBIN 25.5 pg (28.0-32.0); MEAN CORPUSCULAR VOLUME 78.9 fL (81.0-99.0); MEAN PLATELET VOLUME 9.3 fl (7.4-10.4); MONOCYTES % 9.4 % (2.0-8.0); NEUTROPHILS % 63.4 % (40.0-76.0); PLATELET 196 x1000/uL (130-400); RED BLOOD CELL COUNT 4.28 mill/uL (4.2-5.4)
[2019-07-21 19:29] LABS: CHLORIDE 110 mEq/L (98-107)
[2019-07-21 19:35] LABS: ETHANOL BLOOD < 10 mg/dL
[2019-07-21 20:42] LABS: CLARITY URINE CLEAR (CLEAR); COLOR URINE YELLOW (YELLOW); KETONES URINE NEGATIVE (NEGATIVE); LEUKOCYTE ESTERASE URINE 1+ (NEGATIVE); NITRITE URINE NEGATIVE (NEGATIVE); OCCULT BLOOD URINE NEGATIVE (NEGATIVE); PH URINE 5.5 (4.5-8.0); PROTEIN URINE NEGATIVE (NEGATIVE); SPECIFIC GRAVITY URINE 1.006 (1.005-1.030); UROBILINOGEN URINE 0.2 E.U./dL (0.2-1.0)
[2019-07-21 20:58] LABS: *BENZODIAZEPINES SCREEN URINE NEGATIVE (NEGATIVE); *COCAINE SCREEN URINE NEGATIVE (NEGATIVE); METHADONE URINE SCREEN NEGATIVE (NEGATIVE); OPIATES URINE SCREEN NEGATIVE (NEGATIVE)
[2019-07-21 21:00] LABS: *AMPHETAMINES SCREEN URINE NEGATIVE (NEGATIVE); *BARBITURATES SCREEN URINE NEGATIVE (NEGATIVE); CANNABINOID URINE SCREEN NEGATIVE (NEGATIVE); PHENCYCLIDINE URINE SCREEN NEGATIVE (NEGATIVE)
[2019-07-22] MEDS ORDERED: IBUPROFEN 600MG TABLET PO ONE (21:00)
[2019-07-23 12:37] VITALS: BP 129/77
== END 2019-07-23 12:38 | disposition home or self-care (01) ==
LOC: ER 17:09
DX: F20.9 Schizophrenia, unspecified (principal); F91.8 Other conduct disorders; D64.9 Anemia, unspecified; Z75.1 Person awaiting admission to adequate facility elsewhere
CPT/HCPCS: 36415; 80053; 80305; 80320; 81003; 81025; 85025; 99283; G0480

== ENCOUNTER 2019-08-21 14:54 | Emergency (ER) | payer MEDICAID ==
[~2019-08-21] VITALS: Ht 167.6 cm; Wt 137.6 kg
[~2019-08-21 14:54] MED LIST changes: -FLUO20CA37 PO; +FLUO20CA39 PO
[2019-08-21 17:57] LABS: CLARITY URINE CLEAR (CLEAR); COLOR URINE YELLOW (YELLOW); KETONES URINE NEGATIVE (NEGATIVE); LEUKOCYTE ESTERASE URINE 1+ (NEGATIVE); NITRITE URINE NEGATIVE (NEGATIVE); OCCULT BLOOD URINE NEGATIVE (NEGATIVE); PROTEIN URINE NEGATIVE (NEGATIVE); SPECIFIC GRAVITY URINE 1.004 (1.005-1.030); UROBILINOGEN URINE 0.2 E.U./dL (0.2-1.0)
[2019-08-21 18:40] VITALS: BP 131/81
== END 2019-08-21 19:02 | disposition home or self-care (01) ==
LOC: ER 15:42
DX: B35.6 Tinea cruris (principal); F20.9 Schizophrenia, unspecified; F31.9 Bipolar disorder, unspecified
CPT/HCPCS: 81003; 81025; 87210; 99283

== ENCOUNTER 2019-08-31 19:35 | Emergency (ER) | payer MEDICAID ==
[~2019-08-31] VITALS: Ht 165.1 cm; Wt 136.0 kg
[2019-09-01] MEDS ORDERED: SODIUM CHLORIDE 0.9% 1,000 ML IV ONE (14:27)
[2019-09-01 15:00] LABS: CHLORIDE 109 mEq/L (98-107)
[2019-09-01 15:13] LABS: BASOPHILS % 0.6 % (0.0-2.0); EOSINOPHILS % 1.4 % (0.0-5.0); HEMATOCRIT. 36.1 % (36.0-48.0); HEMOGLOBIN. 11.7 g/dL (12.0-16.0); LYMPHOCYTES % 29.8 % (20.0-50.0); MEAN CORPUSCULAR HEMOGLOBIN 25.7 pg (28.0-32.0); MEAN CORPUSCULAR VOLUME 79.2 fL (81.0-99.0); MEAN PLATELET VOLUME 9.7 fl (7.4-10.4); MONOCYTES % 7.4 % (2.0-8.0); NEUTROPHILS % 60.8 % (40.0-76.0); PLATELET 167 x1000/uL (130-400); RED BLOOD CELL COUNT 4.55 mill/uL (4.2-5.4); RED CELL DISTRIBUTION WIDTH 17.7 % (11.6-14.6)
[2019-09-01 15:35] LABS: HCG SCREEN NEGATIVE
[2019-09-01 16:30] VITALS: BP 124/80
== END 2019-09-01 16:31 | disposition home or self-care (01) ==
LOC: ER 19:35
DX: R06.00 Dyspnea, unspecified (principal); R42 Dizziness and giddiness; I10 Essential (primary) hypertension; J45.909 Unspecified asthma, uncomplicated; F20.9 Schizophrenia, unspecified; Z88.8 Allergy status to other drugs, medicaments and biological substances
CPT/HCPCS: 36415; 71045; 80053; 83880; 84484; 84703; 85025; 85379; 93005; 99285; J7030

== ENCOUNTER 2020-05-08 21:36 | Emergency (ER) | payer MEDICAID ==
[~2020-05-08] VITALS: Ht 170.2 cm; Wt 103.0 kg
[2020-05-08 23:21] LABS: CHLORIDE 110 mEq/L (98-107)
[2020-05-08 23:26] LABS: HEMATOCRIT. 33.9 % (36.0-48.0); HEMOGLOBIN. 10.8 g/dL (12.0-16.0); MEAN CORPUSCULAR HEMOGLOBIN 25.4 pg (28.0-32.0); MEAN CORPUSCULAR VOLUME 79.6 fL (81.0-99.0); PLATELET 152 x1000/uL (130-400); RED BLOOD CELL COUNT 4.25 mill/uL (4.2-5.4)
[2020-05-08 23:56] LABS: HCG SCREEN NEGATIVE
[2020-05-09 01:07] LABS: PLATELET ESTIMATE NORMAL
[2020-05-09 13:11] LABS: CLARITY URINE CLEAR (CLEAR); COLOR URINE YELLOW (YELLOW); KETONES URINE NEGATIVE (NEGATIVE); LEUKOCYTE ESTERASE URINE NEGATIVE (NEGATIVE); NITRITE URINE NEGATIVE (NEGATIVE); OCCULT BLOOD URINE NEGATIVE (NEGATIVE); PH URINE 7.5 (4.5-8.0); PROTEIN URINE NEGATIVE (NEGATIVE); SPECIFIC GRAVITY URINE 1.007 (1.005-1.030); UROBILINOGEN URINE 0.2 E.U./dL (0.2-1.0)
[2020-05-09] MEDS ORDERED: DIPHENHYDRAMINE 50MG CAPSULE PO ONE (21:30)
[2020-05-10 09:43] VITALS: BP 136/70
== END 2020-05-10 09:43 | disposition home or self-care (01) ==
LOC: ER 22:30
DX: F29 Unspecified psychosis not due to a substance or known physiological condition (principal); F78 Other intellectual disabilities; R45.851 Suicidal ideations; R56.9 Unspecified convulsions; F31.9 Bipolar disorder, unspecified; F20.9 Schizophrenia, unspecified; Z88.8 Allergy status to other drugs, medicaments and biological substances
CPT/HCPCS: 36415; 71045; 80053; 80178; 80307; 80329; 83880; 84484; 84703; 85025; 93005; 99285

== ENCOUNTER 2020-05-12 18:11 | Emergency (ER) | payer MEDICAID ==
[~2020-05-12] VITALS: Ht 167.6 cm; Wt 141.0 kg
[2020-05-12 20:50] LABS: BASOPHILS % 0.5 % (0.0-2.0); CHLORIDE 108 mEq/L (98-107); EOSINOPHILS % 1.7 % (0.0-5.0); HEMATOCRIT. 34.7 % (36.0-48.0); HEMOGLOBIN. 10.9 g/dL (12.0-16.0); LYMPHOCYTES % 26.9 % (20.0-50.0); MEAN CORPUSCULAR HEMOGLOBIN 25.2 pg (28.0-32.0); MEAN CORPUSCULAR VOLUME 80.4 fL (81.0-99.0); MEAN PLATELET VOLUME 9.7 fl (7.4-10.4); MONOCYTES % 8.4 % (2.0-8.0); NEUTROPHILS % 62.5 % (40.0-76.0); PLATELET 145 x1000/uL (130-400); RED BLOOD CELL COUNT 4.31 mill/uL (4.2-5.4); RED CELL DISTRIBUTION WIDTH 17.4 % (11.6-14.6)
[2020-05-12 21:30] LABS: CLARITY URINE CLEAR (CLEAR); COLOR URINE YELLOW (YELLOW); KETONES URINE NEGATIVE (NEGATIVE); LEUKOCYTE ESTERASE URINE 1+ (NEGATIVE); NITRITE URINE NEGATIVE (NEGATIVE); OCCULT BLOOD URINE NEGATIVE (NEGATIVE); PH URINE 5.5 (4.5-8.0); PROTEIN URINE NEGATIVE (NEGATIVE); SPECIFIC GRAVITY URINE 1.008 (1.005-1.030); UROBILINOGEN URINE 0.2 E.U./dL (0.2-1.0)
[2020-05-13 13:11] VITALS: BP 168/77
[2020-05-13] MEDS ORDERED: ACETAMINOPHEN 325MG TABLET PO ONE (13:15)
== END 2020-05-13 14:03 | disposition home or self-care (01) ==
LOC: ER 18:11
DX: T39.311A Poisoning by propionic acid derivatives, accidental (unintentional), initial encounter (principal); Y92.9 Unspecified place or not applicable; I10 Essential (primary) hypertension; J45.909 Unspecified asthma, uncomplicated; F20.9 Schizophrenia, unspecified; F31.9 Bipolar disorder, unspecified; Z88.8 Allergy status to other drugs, medicaments and biological substances; Z98.890 Other specified postprocedural states
CPT/HCPCS: 36415; 80048; 81003; 85025; 93005; 99285

== ENCOUNTER 2022-02-04 20:09 | Emergency (ER) | payer MEDICAID ==
[~2022-02-04] VITALS: Ht 167.6 cm; Wt 135.7 kg
[~2022-02-04 20:09] MED LIST changes: -HAL5 MT; +HALO5TAB2 MT; -OMEP40CA12 PO; +OMEP40CA20 PO; +POLY119P3 PO; -POLY119P8 PO
[2022-02-04] MEDS ORDERED: TH200 MT (23:42)
[2022-02-04] MEDS ORDERED: ONDANSETRON 4MG ODT PO ONE (23:45)
[2022-02-04] MEDS ORDERED: CHLORPROMAZINE HCL 10 MG TABLET PO ONE (23:45)
[2022-02-05 01:05] VITALS: BP 114/84
== END 2022-02-06 01:05 | disposition home or self-care (01) ==
LOC: ER 20:09
DX: R11.0 Nausea (principal); R45.1 Restlessness and agitation; I10 Essential (primary) hypertension; J45.909 Unspecified asthma, uncomplicated; F31.9 Bipolar disorder, unspecified; F20.9 Schizophrenia, unspecified; Z88.8 Allergy status to other drugs, medicaments and biological substances
CPT/HCPCS: 81025; 99283; Q0161

== ENCOUNTER 2022-02-06 19:56 | Emergency (ER) | payer MEDICAID ==
[~2022-02-06] VITALS: Ht 162.6 cm; Wt 136.7 kg
[2022-02-06 23:24] LABS: BASOPHILS % 0.4 % (0.0-2.0); EOSINOPHILS % 1.6 % (0.0-5.0); HEMATOCRIT. 35.8 % (36.0-48.0); HEMOGLOBIN. 11.4 g/dL (12.0-16.0); LYMPHOCYTES % 32.1 % (20.0-50.0); MEAN CORPUSCULAR VOLUME 82.2 fL (81.0-99.0); MEAN PLATELET VOLUME 9.5 fl (7.4-10.4); MONOCYTES % 8.7 % (2.0-8.0); NEUTROPHILS % 57.2 % (40.0-76.0); PLATELET 173 x1000/uL (130-400); RED BLOOD CELL COUNT 4.36 mill/uL (4.2-5.4); RED CELL DISTRIBUTION WIDTH 18.1 % (11.6-14.6)
[2022-02-06 23:27] LABS: CHLORIDE 108 mEq/L (98-107)
[2022-02-06 23:34] LABS: ETHANOL BLOOD < 10 mg/dL
[2022-02-07 00:55] LABS: CLARITY URINE CLEAR (CLEAR); COLOR URINE YELLOW (YELLOW); KETONES URINE NEGATIVE (NEGATIVE); LEUKOCYTE ESTERASE URINE NEGATIVE (NEGATIVE); NITRITE URINE NEGATIVE (NEGATIVE); OCCULT BLOOD URINE NEGATIVE (NEGATIVE); PH URINE 6.5 (4.5-8.0); PROTEIN URINE NEGATIVE (NEGATIVE); SPECIFIC GRAVITY URINE 1.005 (1.005-1.030); UROBILINOGEN URINE 0.2 E.U./dL (0.2-1.0)
[2022-02-07 00:56] LABS: HCG SCREEN NEGATIVE
[2022-02-07 01:51] LABS: *AMPHETAMINES SCREEN URINE NEGATIVE (NEGATIVE); *BARBITURATES SCREEN URINE NEGATIVE (NEGATIVE); *BENZODIAZEPINES SCREEN URINE NEGATIVE (NEGATIVE); *COCAINE SCREEN URINE NEGATIVE (NEGATIVE); CANNABINOID URINE SCREEN NEGATIVE (NEGATIVE); METHADONE URINE SCREEN NEGATIVE (NEGATIVE); OPIATES URINE SCREEN NEGATIVE (NEGATIVE); PHENCYCLIDINE URINE SCREEN NEGATIVE (NEGATIVE)
[2022-02-07 13:47] VITALS: BP 122/75
== END 2022-02-07 14:48 | disposition home or self-care (01) ==
LOC: ER 19:56
DX: R45.851 Suicidal ideations (principal); F20.9 Schizophrenia, unspecified; J45.909 Unspecified asthma, uncomplicated; F31.9 Bipolar disorder, unspecified; I10 Essential (primary) hypertension; Z79.899 Other long term (current) drug therapy; Z20.822 Contact with and (suspected) exposure to COVID-19
CPT/HCPCS: 36415; 80053; 80305; 80307; 80320; 80329; 81003; 81025; 84703; 85025; 99285; C9803; U0003; U0005; G0480